=== PATIENT | male | born 1955 | race Caucasian/White ===

== ENCOUNTER → 2017-09-06 | Outpatient (CLI) | payer OTHER ==
[~2017-09-06] MED LIST: ANTIVERT GENERI25 MG PO; ASPIRIN 81MG TA81 MG PO; BISOPROLOL 5MG T5 MG PO; CELEBREX 200MG200 MG PO; GABAPENTIN100 MG PO; HYDROCHLOROTH12.5 M1 PO; KEFLEX500 M1 PO; LISINOPRIL 10MG10 MG PO; LORTAB 5/3251 TAB PO; NEXIUM20 MG PO; RANEXA1000 M2 PO
[2017-09-06 10:09] LABS: HEMOGLOBIN 15.1 g/dL (14.1-18.0); LYMPH # 2.1 K/mm3 (0.7-4.5)
[2017-09-06 12:09] LABS: BUN 16 mg/dL (7-18)
[2017-09-06 12:49] LABS: GFR (ESTIMATED) 56 ML/MIN (>60)
[2017-09-08 12:59] LABS: BILIRUBIN, INDIRECT 0.37 mg/dL (0-0.9)
== END ==
LOC: LAB 08:41
PROVIDERS: Family Medicine
DX: I25.10 Atherosclerotic heart disease of native coronary artery without angina pectoris (principal); E78.5 Hyperlipidemia, unspecified; I11.9 Hypertensive heart disease without heart failure